=== PATIENT | female | born 1965 | race Caucasian/White ===

== ENCOUNTER 2020-06-19 18:39 | Emergency (ER) | payer BC, MEDICAID, OTHER ==
[2020-06-19] MEDS ORDERED: Albuterol 8 GM Inhaler INH ONE (18:40)
[2020-06-19] MEDS ORDERED: Aspirin 81 MG Tab.Chew PO ONE (18:58)
[2020-06-19] MEDS ORDERED: Albuterol/Ipratropium 3.0-0.5 MG/3 ML Neb Soln NEB ONE (19:42)
[2020-06-19] MEDS ORDERED: Labetalol 20 MG/4 ML Syringe IVPUSH ONE ×2 (19:42→19:54)
--- NOTE | 2020-06-19 19:47 | EDM.PDOC ---
ED HPI GENERAL MEDICAL PROBLEM - General Chief Complaint: Chest Pain Stated Complaint: SOB THIGHTNESS IN CHEST Time Seen by Provider: 06/19/20 19:43 Source of Information: Reports: Patient History Limitations: Reports: No Limitations - History of Present Illness INITIAL COMMENTS - FREE TEXT/NARRATIVE: Chest tightness for 2 weeks. On and off wheezing. Tonight she experienced sudden shortness of breath,with cough. She does have a h/o HTN and IZAIAH,tobacco abuse. No sveta chest pain,myalgias,headache. ED ROS GENERAL - Review of Systems Review Of Systems: Comprehensive ROS is negative, except as noted in HPI. ED EXAM, GENERAL - Physical Exam Exam: See Below Exam Limited By: No Limitations General Appearance: Alert, No Apparent Distress Ears: Normal External Exam Nose: Normal Inspection Throat/Mouth: Normal Inspection Head: Atraumatic Respiratory/Chest: No Respiratory Distress, Decreased Breath Sounds, Wheezing Cardiovascular: Normal Peripheral Pulses Neurological: Alert, Oriented Psychiatric: Normal Affect EKG INTERPRETATION EKG Date: 06/19/20 Rhythm: NSR Course - Orders/Labs/Meds Orders: Active Orders 24 hr Category Date Time Status EKG Documentation Completion [RC] ASDIRECTED Care 06/19/20 18:58 Active RT Aerosol Therapy [RC] ASDIRECTED Care 06/19/20 19:43 Active CXR [Chest 2V] [CR] Stat Exams 06/19/20 19:08 Taken Sodium Chloride 0.9% [Saline Flush] Med 06/19/20 20:04 Active 10 ml FLUSH ASDIRECTED PRN EKG 12 Lead [EK] Routine Ther 06/19/20 18:58 Ordered Medication Orders Sodium Chloride (Saline Flush) 10 ml FLUSH ASDIRECTED PRN PRN Reason: Keep Vein Open Last Admin: 06/19/20 20:04 Dose: 10 ml Documented by: KISHORE Labs: Laboratory Tests 06/19/20 06/19/20 06/19/20 Range/Units 19:20 19:20 19:20 WBC 10.7 (4.5-12.0) X10-3/uL RBC 3.96 (3.23-5.20) x10(6)uL Hgb 12.5 (11.5-15.5) g/dL Hct 37.7 (30.0-51.3) % MCV 95.1 (80-96) fL MCH 31.5 (27.7-33.6) pg MCHC 33.2 (32.2-35.4) g/dL RDW 11.4 L (11.5-15.5) % Plt Count 270 (125-369) X10(3)uL MPV 8.4 (7.4-10.4) fL Neut % (Auto) 74.2 (46-82) % Lymph % (Auto) 19.1 (13-37) % [place] % (Auto) 5.1 (4-12) % Eos % (Auto) 1 (1.0-5.0) % Baso % (Auto) 0 (0-2) % Neut # (Auto) 8.1 (1.6-8.3) # Lymph # (Auto) 2.0 (0.6-5.0) # [place] # (Auto) 0.5 (0.0-1.3) # Eos # (Auto) 0.1 (0.0-0.8) # Baso # (Auto) 0.0 (0.0-0.2) # D-Dimer, Quantitative (0.0-0.59) mg/LFEU Sodium 139 (135-145) mmol/L Potassium 3.8 (3.5-5.3) mmol/L Chloride 102 (100-110) mmol/L Carbon Dioxide 25 (21-32) mmol/L BUN 15 (7-18) mg/dL Creatinine 0.7 (0.55-1.02) mg/dL Est Cr Clr Drug Dosing TNP Estimated GFR (MDRD) > 60 (>60) BUN/Creatinine Ratio 21.4 H (9-20) Glucose 106 (80-116) mg/dL Calcium 9.1 (8.6-10.2) mg/dL Total Bilirubin 0.3 (0.1-1.3) mg/dL AST 16 (5-25) IU/L ALT 27 (12-36) U/L Alkaline Phosphatase 70 (56-112) IU/L Troponin I < 4.0 L (4.0-60.3) pg/mL C-Reactive Protein < 0.2 L (0.5-0.9) mg/dL Total Protein 7.3 (6.0-8.0) g/dL Albumin 4.0 (3.5-5.2) g/dL Globulin 3.3 g/dL Albumin/Globulin Ratio 1.2 06/19/20 Range/Units 19:20 WBC (4.5-12.0) X10-3/uL RBC (3.23-5.20) x10(6)uL Hgb (11.5-15.5) g/dL Hct (30.0-51.3) % MCV (80-96) fL MCH (27.7-33.6) pg MCHC (32.2-35.4) g/dL RDW (11.5-15.5) % Plt Count (125-369) X10(3)uL MPV (7.4-10.4) fL Neut % (Auto) (46-82) % Lymph % (Auto) (13-37) % [place] % (Auto) (4-12) % Eos % (Auto) (1.0-5.0) % Baso % (Auto) (0-2) % Neut # (Auto) (1.6-8.3) # Lymph # (Auto) (0.6-5.0) # [place] # (Auto) (0.0-1.3) # Eos # (Auto) (0.0-0.8) # Baso # (Auto) (0.0-0.2) # D-Dimer, Quantitative 0.31 (0.0-0.59) mg/LFEU Sodium (135-145) mmol/L Potassium (3.5-5.3) mmol/L Chloride (100-110) mmol/L Carbon Dioxide (21-32) mmol/L BUN (7-18) mg/dL Creatinine (0.55-1.02) mg/dL Est Cr Clr Drug Dosing Estimated GFR (MDRD) (>60) BUN/Creatinine Ratio (9-20) Glucose (80-116) mg/dL Calcium (8.6-10.2) mg/dL Total Bilirubin (0.1-1.3) mg/dL AST (5-25) IU/L ALT (12-36) U/L Alkaline Phosphatase (56-112) IU/L Troponin I (4.0-60.3) pg/mL C-Reactive Protein (0.5-0.9) mg/dL Total Protein (6.0-8.0) g/dL Albumin (3.5-5.2) g/dL Globulin g/dL Albumin/Globulin Ratio Meds: Medications Generic Name Dose Route Start Last Admin Trade Name Freq PRN Reason Stop Dose Admin Sodium Chloride 10 ml 06/19/20 20:04 06/19/20 20:04 Saline Flush FLUSH 10 ml ASDIRECTED PRN Administration Keep Vein Open Discontinued Medications Generic Name Dose Route Start Last Admin Trade Name Freq PRN Reason Stop Dose Admin Albuterol/Ipratropium 3 ml 06/19/20 19:42 06/19/20 19:50 Duoneb 3.0-0.5 Mg/3 Ml NEB 06/19/20 19:43 3 ml ONETIME ONE Administration Aspirin 324 mg 06/19/20 18:58 06/19/20 19:49 Aspirin PO 06/19/20 18:59 324 mg ONETIME ONE Administration Labetalol HCl 10 mg 06/19/20 19:42 06/19/20 19:55 Normodyne IVPUSH 06/19/20 19:43 Not Given ONETIME ONE Protocol Labetalol HCl 5 mg 06/19/20 19:54 06/19/20 19:57 Normodyne IVPUSH 06/19/20 19:55 5 mg ONETIME ONE Administration Protocol Departure - Departure Time of Disposition: 20:20 Disposition: Home, Self-Care 01 Condition: Good Clinical Impression: Anxiety, Chest tightness, Tobacco abuse, HTN (hypertension) Referrals: Ismael Pozo MD [Primary Care Provider] - Forms: ED Department Discharge - Problem List & Annotations (1) Chest tightness SNOMED Code(s): 73125221 Code(s): R07.89 - OTHER CHEST PAIN Status: Acute Current Visit: Yes (2) Tobacco abuse SNOMED Code(s): 245749941 Code(s): Z72.0 - TOBACCO USE Status: Acute Current Visit: Yes (3) HTN (hypertension) SNOMED Code(s): 65296814 Code(s): I10 - ESSENTIAL (PRIMARY) HYPERTENSION Status: Acute Current Visit: Yes Qualifiers: Hypertension type: essential hypertension Qualified Code(s): I10 - Essential (primary) hypertension (4) Anxiety SNOMED Code(s): 62745320 Code(s): F41.9 - ANXIETY DISORDER, UNSPECIFIED Status: Acute Current Visit: Yes (5) COPD (chronic obstructive pulmonary disease) SNOMED Code(s): 28447008 Code(s): J44.9 - CHRONIC OBSTRUCTIVE PULMONARY DISEASE, UNSPECIFIED Status: Acute Current Visit: Yes Qualifiers: COPD type: emphysema - Problem List Review Problem List Initiated/Reviewed/Updated: Yes - My Orders Last 24 Hours: My Active Orders 06/19/20 19:08 CXR [Chest 2V] [CR] Stat 06/19/20 19:43 RT Aerosol Therapy [RC] ASDIRECTED 06/19/20 20:04 Sodium Chloride 0.9% [Saline Flush] 10 ml FLUSH ASDIRECTED PRN - Assessment/Plan Last 24 Hours: My Active Orders 06/19/20 19:08 CXR [Chest 2V] [CR] Stat 06/19/20 19:43 RT Aerosol Therapy [RC] ASDIRECTED 06/19/20 20:04 Sodium Chloride 0.9% [Saline Flush] 10 ml FLUSH ASDIRECTED PRN Plan: DuoNeb x 1,Labetalol 10 mg IV. She improved. I sent her home on Albuterol prn. I recommended tobacco cessation,and to see Dr Pozo on Sunday. Consider Stress test
[2020-06-19] MEDS ORDERED: Sodium Chloride 0.9% 10 ML Syringe FLUSH PRN (20:04)
--- NOTE | 2020-06-21 10:25 | CR ---
INDICATION: Chest pain. CHEST, TWO VIEWS: PA and lateral views of the chest were obtained 06/19/20 and compared with 11/12/10. Overlying EKG leads are noted. Heart, mediastinum, and bony thorax are unremarkable. I do note some minimal degenerative changes in the lower thoracic spine. Somewhat flattened diaphragm leads, prominent AP diameter, and hyperaeration suggest COPD - progressive compared with 11/12/10. A definite active infiltrate or effusion was not identified with markings similar to the previous examination. IMPRESSION: 1. No acute process. 2. Probable COPD - correlate clinically. 3. Mild DJD lower thoracic spine. MTDD
== END 2020-06-19 20:40 | disposition home or self-care (01) ==
LOC: FB.ED 18:39
DX: F41.9 Anxiety disorder, unspecified (principal); I10 Essential (primary) hypertension; Z72.0 Tobacco use
CPT/HCPCS: 36415; 71046; 80053; 84484; 85025; 85379; 86140; 93005; 96374; 99285; A9270; J3490; J7620-GY